=== PATIENT | male | born 1955 | race Asian ===

== ENCOUNTER 2024-02-20 07:08 | Day surgery (SDC) | payer OTHER ==
[~2024-02-20] VITALS: Ht 154.9 cm; Wt 72.6 kg
[2024-02-20] MEDS ORDERED: fentaNYL citrate 0.05 MG/ML VIAL ONE (08:57)
[2024-02-20] MEDS ORDERED: LIDOCAINE 2% 100 MG/5 ML UJET TP ONE ×2 (08:58→10:05)
[2024-02-20] MEDS: fentaNYL citrate 0.05 MG/ML VIAL IVP ONE (09:12)
== END 2024-02-20 10:15 | disposition home or self-care (01) ==
LOC: MOR 07:08 → MMU 07:09 → MOR 10:15
PROVIDERS: ATTEND Internal Medicine Gastroenterology
DX: Z12.11 Encounter for screening for malignant neoplasm of colon (principal); D12.2 Benign neoplasm of ascending colon; D12.4 Benign neoplasm of descending colon; I10 Essential (primary) hypertension; E78.00 Pure hypercholesterolemia, unspecified; F17.210 Nicotine dependence, cigarettes, uncomplicated; Z79.899 Other long term (current) drug therapy; Z98.890 Other specified postprocedural states
CPT/HCPCS: 45385; J3010